=== PATIENT | female | born 1970 | race Caucasian/White ===

== ENCOUNTER 2021-01-10 08:01 | Day surgery (SDC) | payer SELFPAY, OTHER ==
--- NOTE | 2021-01-09 09:02 | PCM.HP.BLA ---
History and Physical Date of Admission: 01/10/21 Expand AllCollapse All Expand All by Default Hide copied text Hover for details Pre-Op History and Physical ? HPI: The patient is a 50 year old female presenting for discussion regarding Endometrial ablation and Bilateral salpingectomy for AUB, desires sterilization ? pre-operative visit. She is scheduled for Joanna ablation, hysteroscopy, Bilatereal salpingectomy, for AUB, desires sterliziation. on 01/10/21. Procedure discussed along with risks, benefits and complications. Other alternatives discussed for management. Consent form signed? Yes. ? ? PAST MEDICAL HISTORY PAST MEDICAL HISTORY Diagnosis Date ? Ovarian cyst ? ? ? PAST SURGICAL HISTORY PAST SURGICAL HISTORY Procedure Laterality Date ? SECTION HX ? ? ? REMOVAL GALLBLADDER ? CURRENT MEDICATIONS No current outpatient medications on file. ? No current facility-administered medications for this visit. ? ? ALLERGIES: Patient has no known allergies. ? PERSONAL HISTORY: SOCIAL HISTORY Social History ? Tobacco Use ? Smoking status: Never Smoker ? Smokeless tobacco: Never Used Vaping Use ? Vaping Use: Never used Substance Use Topics ? Alcohol use: Never ? Drug use: Never ? FAMILY HISTORY: FAMILY HISTORY No family history on file. ? REVIEW OF SYMPTOMS: negative except as noted above PHYSICAL EXAMINATION: ? VITALS: Blood pressure 106/62, height 5' 2.4 (1.585 m), weight 186 lb (84.4 kg), last menstrual period 12/29/2020. ? GENERAL: The patient is well nourished, well hydrated in no acute distress. , The patient is oriented to time, place, and person. NECK: full range of motion NEURO: A&O x 3 ? IMPRESSION: 50yo with AUB, desires sterilization ? PLAN: Hysteroscopy, Joanna Ablation, Laparoscopic b/l salpingectomy ? Pt has been counseled on risks/benefits and alternatives of surgery including but not limited to anesthesia, bleeding, infection, uterine perforation with subsequent injury to pelvic structures including bowel, bladder, ureters and vessels. Pt wishes to proceed with surgery at this time. ? EMB benign and Ultrasound reviewed from Outside facility Covid testing reviewed PRE AND POST op reviewed MOTRIN and mylicon given. I have reviewed and updated past medical and surgical history, medications and allergies Ene Dalton MD ?2:21 PM Office Visit on 12/31/2020 Office Visit on 12/31/2020 Note shared with patient
[2021-01-10] VITALS (8 sets, daily range): BP systolic 110–127; BP diastolic 66–82; PULSE 45–78; RESP 16; TEMP 35.7–37.1; O2SAT 92–98; BMI 33.7
[2021-01-10 08:32] LABS: Internal QC Validated? YES +Cl - CLEAR BKGD; Pregnancy, Urine Negative Negative
[2021-01-10] MEDS: Lactated Ringers 1,000 ML 100 ML IV (08:55)
[2021-01-10 09:07] LABS: Hematocrit 39.3 % (37-47); Mean Corp Hgb Conc 33.1 g/dL (32-36); Mean Corpuscular Hgb 27.8 pg (27.0-32.0); Mean Platelet Vol. 10.4 fl (6.2-12.0); Platelet Count 167 K/mm3 (150-450); RBC Distribution Width CV 13.6 % (11.6-14.6); RBC Distribution Width SD 41.8 fl (35.1-43.9); Red Blood Count 4.68 M/mm3 (4.2-5.4); White Blood Count 5.2 K/mm3 (4.4-11.0)
--- NOTE | 2021-01-10 09:30 | FALS_PTH ---
PATIENT: SKYE SANCHEZ [place] [facility] [place][id number] AGE/SX: 50/F ROOM: RE01/10/[address]: Dr. Ene Muniz, MDDOB: 1970 BED: DIS: 01/10/2021 SPEC #: [id number] RECD: 01/10/21 13:39 STATUS: ANGIE SAMMI #: [id number] JOSHUA: 01/10/21 09:[address]: Ene Muniz DEPT: SURGICAL PATHOLOGY RECD BY: Libra Roth ENTERED: 01/10/21 13:54 SP TYPE: FALL TUBES OTHR DR: No Primary Care Phys Tissues: Fallopian tube Procedures: Surgery Specimen Level II HEADER OPERATION: Hysteroscopy endometrial ablation, Joanna PRE-OP DIAGNOSIS: Abnormal uterine bleeding, desires sterilization TISSUE SUBMITTED: Bilateral fallopian tubes MICROSCOPIC DIAGNOSIS Right and left fallopian tubes, salpingectomies: Benign fallopian tubes One benign paratubal cyst. NEREYDA:nereyda 01/11/21 MICROSCOPIC DESCRIPTION Slides are reviewed. GROSS DESCRIPTION Received in fixative is one container labeled with the patient's name and designated bilateral fallopian tubes. The specimen consists of two fallopian tubes with an average length of 6.0cm and has an average diameter of 0.8cm. Both fallopian tubes have normal fimbriated ends. No mass lesions are identified. One fallopian tube has a paratubal cyst measuring 1.0cms in diameter. [employer] sections are submitted in two cassettes as follows: 1 - one fallopian tube with cyst, 2 - the other fallopian tube. / AM:nereyda TC:5 CPT: 33755 ,19651
[2021-01-10] MEDS: Bupivacaine Mpf 0.5% 30 ML VIAL (09:47)
--- NOTE | 2021-01-10 10:13 | OP.PCM_ITS ---
Problems Associated Problem List Diagnoses (1) Abnormal uterine bleeding (AUB): (2) Request for sterilization: Report of Operation Date of Procedure: 01/10/21 Pre-Operative Diagnosis: AUB, Desires sterilization Post-Operative Diagnosis: same, omental adhesions Surgery/Procedure Performed:: Hysteroscopy, Joanna ablation, Laparoscopic Bilateral salpingectomy, lysis of adhesions Description of Surgical Findings:: Omental adhesion to Anterior aspect of uterus extneding to bladder reflection and Anerior abdominal wall Surgeon: Ene Muniz folding machine setter: Catalina Cordoba folding machine setter: CYNTHIA castellanos Type of Anesthesia: General Special Medications: 0.5% marcaine Specimen's removed: bilateral fallopian tubes Drains: none Estimated Blood Loss (mL): 5cc Fluids Replaced: 800 Description of Procedure: After informed consent was obtained patient taken to the operating room she is placed in supine position she is given anesthesia simply self insert she is prepped draped normal sterile fashion. Bladder was drained prior to the start of the procedure. At this time the weighted speculum was placed the posterior fornix of the vagina then a single-tooth tenaculum was used to grasp the anterior lip of the cervix. At this time the uterus was sounded to approximately 10 cm the endocervical canal sounded to 4cm. cervix already dilated. Once adequate dilatation was achieved the hysteroscope was inserted using normal saline as distention medium. On hysteroscopy no abnormalities appreciated. Both tubal ostia were visualized. At this time the Joanna device was opened. The Joanna was set at 4cm. The device was activated. Prior to activation the field test was performed and cavity was intact. The device was then fired and activated for 120 seconds. Once the 120 seconds was completed the device was removed intact and the tenaculum was removed. Good hemostasis was appreciated. Weighted speculum was removed. Uterine manipulator was placed without difficulty. Legs then placed in parallel with the abdomen the tenaculum and the weighted speculum were removed. 2 towel clamps were placed at level of umbilicus. Marcaine was injected infraumbilical and a small incision was made. The 5 mm trocar was placed under direct visualization. CO2 gas was used to insufflate the intra-abdominal cavity. Upon inspection- omental adhesions to the anterior abdominal wall and also extending down the anterior aspect of the uterus to the bladder reflection. Left Lower quadrant 5mm port placed under direct visualization after marcaine injection and small incision made. These adhesions were taken down using the Enseal device. Good hemostasis appreciated. Next the LLQ port placed in same fashion. the uterus tubes and ovaries appeared to be normal. At this time then tubes were traced back to the fimbriated ends. Enseal was used to coagulate and ligate along mesosalpinx bilaterally until tubes removed completely. Good hemostasis was appreciated. At this time procedure was deemed complete successful. The gas was desufflated on from the intra-abdominal cavity. The trochars were removed. Skin was closed using 4-0 Monocryl in a subcutaneous fashion. Dermabond glue was placed. Instrument lap and needle counts were correct ?2. The uterine manipulator was removed. Vaginal sweep was performed it was negative. There were no complications anticipated normal postoperative course for this patient. Grafts/Implants Used: none Procedure Start Time: 09:47 Procedure Stop Time: 10:23 Complications none Admit VTE Documentation VTE Present on Admission: Yes VTE Mechan Device Prophylaxis: SCD's VTE Pharm Prophylaxis ordered?: No Reason prophylaxis not ordered:: Procedure Not Indicated
--- NOTE | 2021-01-10 10:21 | EX.PCM.DISCH ---
Discharge Instructions Procedure Other Diet Discharge Diet: No restrictions Activity May resume sexual activity in: 2 weeks Lifting Restrictions: 20-25 lbs Dressing / Incision Call your doctor if your incision/area has: Continuous Slow Oozing, Sudden Increased Bleeding, Increased Pain/ Swelling, Increased Redness, Foul Smelling Discharge and Swelling at the incision site Call your doctor if you observe: Fever of 101 or Higher, Inability to urinate, Inability to have a bowel movement, Using more than 1 pad per hour and Uncontrolled pain Additional Dressing/Incision Instructions:: You have skin glue over your incision sites, do not pick off. You may shower and let the soap and water run over the incision sites and dab dry. Follow Up Care Please Follow Up With: Ene Muniz MD When: 1-2 weeks post OP if you need an appointment please call [phone] Test Results: Test results from this visit will be discussed in further detail at your follow-up appointment, if applicable. Discharge Plan Admission Attending Provider: Ene Muniz Primary Care Provider: Care Physician,Nona Primary Discharge Orders/Prescriptions Prescriptions: No Action Intestinal Formula 1 cap PO/SL DAILY RF: 0 Referrals / Follow Up: Care Physician,No Primary [Primary Care Provider] - Disposition Disposition (needs filled in before D/C Order can be placed): Home, Self Care
[2021-01-10] MEDS: HYDROcodone Bitartrate/Apap 5/325 Tablet PO (12:06)
== END 2021-01-10 12:52 | disposition home or self-care (01) ==
LOC: SDC 08:08 → AC 08:08
PROVIDERS: Referring Provider Obstetrics & Gynecology; Visit Provider Obstetrics & Gynecology
PROC: 0U5B8ZZ Destruction of Endometrium, Via Natural or Artificial Opening Endoscopic (ICD-10-PCS; CPT 58558; principal; 2021-01-10 09:15)
PROC: (CPT 58661; 2021-01-10 09:15)
DX: N93.9 Abnormal uterine and vaginal bleeding, unspecified (principal); N73.6 Female pelvic peritoneal adhesions (postinfective); N83.8 Other noninflammatory disorders of ovary, fallopian tube and broad ligament; Z30.2 Encounter for sterilization; Z20.822 Contact with and (suspected) exposure to COVID-19
CPT/HCPCS: 00840; 58563; 58661; 81025; 85027; 87426; 88302; C9803; J7120; J2405; Q9968